=== PATIENT | female | born 1940 | race Caucasian/White ===

== ENCOUNTER 2022-08-11 01:39 | Observation (INO) | payer MEDICARE, BC ==
[~2022-08-11] VITALS: Ht 165.1 cm; Wt 79.3 kg
[2022-08-11] MEDS ORDERED: ASPI81CH PO (06:14)
[2022-08-11] MEDS ORDERED: CLOP75 PO (06:15)
[2022-08-11] MEDS ORDERED: RANO500T PO (06:16)
[2022-08-11] MEDS ORDERED: ATOR10 PO (06:16)
[2022-08-11] MEDS ORDERED: ACET500 PO (06:18)
[2022-08-11 06:30] LABS: Hematocrit 38.5 % (33.0-51.0); Mean Corpuscular HGB 29.7 pg (26.0-34.0); Mean Corpuscular HGB Conc 31.2 g/dL (31.5-36.5); Mean Corpuscular Volume 95 fL (80-100); Mean Platelet Volume 10.4 fL (9.1-12.4); Platelet Count 155 K/mm3 (150-400); RDW Coefficient Variation 13.1 % (11.7-14.2); Red Blood Cell Count 4.04 M/mm3 (3.80-5.20); White Blood Cell Count 39.59 K/mm3 (4.00-11.30)
[2022-08-11 06:38] LABS: International Normalized Ratio 1.09; Prothrombin Time Results 11.4 Sec (9.7-11.5)
[2022-08-11 06:39] LABS: Bun/Creatinine Ratio 35.7 (12.0-20.0); Calcium, Blood 9.6 mg/dL (8.5-10.1); Creatinine, Blood 0.93 mg/dL (0.40-1.00); Potassium, Blood 4.6 mmol/L (3.5-5.5)
--- NOTE | 2022-08-11 07:19 | NUR ---
ARRIVAL TO [facility] PT ARRIVED TO [facility] AT APPROXIMATELY 0530. PT A&Ox4, CALLS AND COMMUNICATES NEEDS APPROPRIATELY. VSS, BP STABLE, SINUS 60-70's, DENIES CP/PRESSURE, SpO2> 92% RA, DENIES SOB. PT TRANFERED FROM [facility] TO [facility] BED WITH SBA AND FWW. PT USED BSC TO VOID AND HAVE SMALL BM. PT ARRIVED WITH HEPARIN GTT INFUSING AT 19.7mls/hr, CONFIRMED WITH PHARMACY. ORIENTED PT TO CALL LIGHT AND ROOM. PT REMAINING NPO. REPORT GIVEN TO DAY SHIFT RNARIANE.
[2022-08-11] MEDS ORDERED: Carvedilol12.5 MG PO (13:03)
[2022-08-11] MEDS ORDERED: Isosorbide Mono30 MG PO (13:04)
[2022-08-11] MEDS ORDERED: Celexa20 MG PO (13:04)
[2022-08-11] MEDS ORDERED: LISI5 PO (13:04)
[2022-08-11] MEDS ORDERED: ATOR40TA PO (13:07)
--- NOTE | 2022-08-11 18:10 | NUR ---
SHIFT SUMMARY PT A/OX4 AND COOPERATIVE OF CARE. VSS THROUGHOUT SHIFT WITH O2 SATS >93% ON RA. NO REPORT OF CHEST PAIN BUT DID REPORT SOME PRESSURE DURING THE NIGHT, PRESSURE HAS SINCE BEEN GONE. NO REPORT OF SOB/DYSPNEA THROUGHOUT SHIFT. PT UP TO BEDSIDE COMMODE MULTIPLE TIMES, TOLERATED WELL. PT SEEN BY DUPLICATION SPECIALIST, NO INTERVENTION TODAY, PT REMAINS ON HEP GTT PER ORDERS. PT DAUGHTER UPDATED, HOME MEDS UPDATED.
--- NOTE | 2022-08-12 04:28 | NUR ---
end of shift summary no acute event overnight pt was intialy hypertensive systolic was 170"s at 2000 but was getting night metroprolol when retaken in 140s. 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 heprin is theraputic and is currently running at 19units/hr next recheck will be at 830.will continue to monitor and report off to oncoming rn.
[2022-08-12 08:31] LABS: Hematocrit 35.9 % (33.0-51.0); Hemoglobin 11.3 g/dL (11.5-16.0); Mean Platelet Volume 10.1 fL (9.1-12.4); Platelet Count 127 K/mm3 (150-400)
--- NOTE | 2022-08-12 09:49 | NUR ---
Pt. is awake in bed, coloring. and welcomes my visit. Pt. is unsettled because a delay in her prognosis. Listen empathetically with a calming presence. Pt. is pleasant and verbalizes that she lives in [place]. Facilitate a short life review. Pt. displays evidence of clear thinking and engagement. Prayed with Pt. Pt.verbalizes graittude for the spiritual care visit.
--- NOTE | 2022-08-12 10:49 | NUR ---
RX CALLED TO PT'S PHARMACY OF CHOICE AT THIS TIME. [facility]. RX GIVEN VERBALLY TO PHARMACIST
[2022-08-12] MEDS ORDERED: FURO40 PO (11:11)
[2022-08-12] MEDS ORDERED: POTA10T PO (11:12)
== END 2022-08-12 13:35 | disposition home or self-care (01) ==
LOC: PCU 01:39
PROVIDERS: ADMIT Internal Medicine
DX: I21.4 Non-ST elevation (NSTEMI) myocardial infarction (principal); I50.9 Heart failure, unspecified; E11.9 Type 2 diabetes mellitus without complications; I11.0 Hypertensive heart disease with heart failure; I25.119 Atherosclerotic heart disease of native coronary artery with unspecified angina pectoris; Z88.5 Allergy status to narcotic agent; Z79.82 Long term (current) use of aspirin
CPT/HCPCS: 36415; 71045; 80048; 82947; 83880; 84484; 85014; 85018; 85027; 85049; 85610; 85730; 93306; A9270; J1644; J1940